=== PATIENT | female | born 1950 | race Caucasian/White ===

== ENCOUNTER → 2016-09-13 | Outpatient (CLI) | payer MEDICARE | END | disposition home or self-care (01) | LOC: CVU 11:34 | PROVIDERS: ATTEND Internal Medicine Cardiovascular Disease | DX: I65.23 Occlusion and stenosis of bilateral carotid arteries (principal) | CPT/HCPCS: 93880 ==

== ENCOUNTER → 2016-09-21 | Outpatient (CLI) | payer MEDICARE ==
[2016-09-21 13:15] LABS: ASPARTATE AMINO TRANSFERASE 122 U/L (15-37); BLOOD UREA NITROGEN 6 mg/dL (7-18)
== END | disposition home or self-care (01) ==
LOC: LAB 08:30
PROVIDERS: ATTEND Internal Medicine Cardiovascular Disease
DX: E78.5 Hyperlipidemia, unspecified (principal); E78.00 Pure hypercholesterolemia, unspecified; R19.5 Other fecal abnormalities; R94.5 Abnormal results of liver function studies; F10.20 Alcohol dependence, uncomplicated; D75.1 Secondary polycythemia; I10 Essential (primary) hypertension; R73.02 Impaired glucose tolerance (oral); I73.9 Peripheral vascular disease, unspecified; I25.10 Atherosclerotic heart disease of native coronary artery without angina pectoris; D69.6 Thrombocytopenia, unspecified; Z68.25 Body mass index [BMI] 25.0-25.9, adult; F17.210 Nicotine dependence, cigarettes, uncomplicated; Z78.0 Asymptomatic menopausal state
CPT/HCPCS: 36415; 80053; 80061; 82103; 82306; 82728; 82784; 83516; 84443; 85025; 85610; 86038

== ENCOUNTER → 2017-02-14 | Outpatient (CLI) | payer MEDICARE ==
[2017-02-14 12:41] LABS: BLOOD UREA NITROGEN 7 mg/dL (7-18); HEMATOCRIT 49.9 % (34.6-47.8); HEMOGLOBIN 16.9 g/dL (11.7-16.4); WHITE BLOOD COUNT 4.2 x10^3/uL (3.4-10)
[2017-02-14 12:46] LABS: ASPARTATE AMINO TRANSFERASE 325 U/L (15-37)
== END | disposition home or self-care (01) ==
LOC: CFH 09:18
PROVIDERS: ATTEND Internal Medicine
DX: E78.5 Hyperlipidemia, unspecified (principal); D69.6 Thrombocytopenia, unspecified; D75.1 Secondary polycythemia; E78.00 Pure hypercholesterolemia, unspecified; F10.24 Alcohol dependence with alcohol-induced mood disorder; R79.89 Other specified abnormal findings of blood chemistry
CPT/HCPCS: 36415; 80053; 80061; 82306; 83036; 85025

== ENCOUNTER → 2017-08-24 | Outpatient (CLI) | payer MEDICARE | END | disposition home or self-care (01) | LOC: CVU 06:59 | PROVIDERS: ATTEND Internal Medicine Cardiovascular Disease | DX: I65.23 Occlusion and stenosis of bilateral carotid arteries (principal); I08.1 Rheumatic disorders of both mitral and tricuspid valves; I10 Essential (primary) hypertension; E78.5 Hyperlipidemia, unspecified | CPT/HCPCS: 93306; 93880 ==

== ENCOUNTER → 2017-09-20 | Outpatient (CLI) | payer MEDICARE ==
[2017-09-20 12:55] LABS: CHLORIDE 103 mmol/L (98-107)
[2017-09-20 13:09] LABS: MEAN CORPUSCULAR HEMOGLOBIN 37.7 pg (27.0-34.8); MEAN CORPUSCULAR HGB CONC 34.4 g/dL (32.4-35.8); MEAN CORPUSCULAR VOLUME 109.6 fL (80-100); MEAN PLATELET VOLUME 10.7 fL (7.4-10.4); PLATELET COUNT 86 x10^3/uL (130-400); RED BLOOD COUNT 4.22 x10^6/uL (3.82-5.3); RED CELL DISTRIBUTION WIDTH 14.7 % (9.6-15.2)
[2017-09-20 13:10] LABS: MD YES
[2017-09-20 13:14] LABS: BASOS#(MANUAL) 0.12 x10^3/uL (0-0.1); BASOS% (MANUAL) 3 % (0-1); EOS#(MANUAL) 0.08 x10^3/uL (0.0-0.4); EOS% (MANUAL) 2 % (1-7); LYMPHS% (MANUAL) 22 % (22-44); MONOS#(MANUAL) 0.33 x10^3/uL (0.3-2.7); MONOS% (MANUAL) 8 % (2-9); REACTIVE LYMPHS # (MANUAL) 0.41 x10^3/uL (0-0); REACTIVE LYMPHS % (MANUAL) 10 % (0-0); SEG#(MANUAL) 2.26 x10^3/uL (1.8-6.8); SEGS% (MANUAL) 55 % (42-75)
[2017-09-20 13:15] LABS: <PLATELET ESTIMATE> DECREASED; ANISOCYTOSIS 1+; GIANT PLATELETS 1+; LARGE PLATELETS 1+
[2017-09-20 13:22] LABS: ALANINE AMINOTRANSFERASE 247 U/L (12-78); ALBUMIN 3.5 g/dL (3.4-5.0); ALKALINE PHOSPHATASE 106 U/L (45-117); ANION GAP 8 mmol/L (5-15); BILIRUBIN,TOTAL 0.5 mg/dL (0.2-1.0); CALCIUM 8.2 mg/dL (8.5-10.1); CHOL/HDL RATIO 4.3; CHOLESTEROL, TOTAL 119 mg/dL (140-239); CREATININE 0.56 mg/dL (0.55-1.02); FOLATE LEVEL 9.8 ng/mL (3.1-17.5); HDL CHOL % 24 % (28-40); HDL CHOLESTEROL (DIRECT) 28 mg/dL (40-60); LDL CHOLESTEROL,CALCULATED 75 mg/dL (54-169); LDL/HDL RATIO 2.7 (0.5-3.0); TOTAL PROTEIN 7.5 g/dL (6.4-8.2); TRIGLYCERIDES 82 mg/dL (50-200); VLDL CHOLESTEROL 16 mg/dL (0-25)
== END | disposition home or self-care (01) ==
LOC: CFH 08:07
PROVIDERS: ATTEND Internal Medicine Cardiovascular Disease
DX: I10 Essential (primary) hypertension (principal); E78.00 Pure hypercholesterolemia, unspecified; D69.6 Thrombocytopenia, unspecified; D75.1 Secondary polycythemia; E55.9 Vitamin D deficiency, unspecified
CPT/HCPCS: 36415; 80053; 80061; 82607; 82746; 83615; 85025

== ENCOUNTER 2018-03-23 08:41 | Emergency (ER) | payer MEDICARE ==
[~2018-03-23] VITALS: Ht 165.1 cm; Wt 66.0 kg
[2018-03-23 08:49] VITALS: BP 169/78
[2018-03-23] MEDS ORDERED: ACETAMINOPHEN 500 MG TABLET PO ONE (11:00)
[2018-03-23] MEDS ORDERED: KETOROLAC 30 MG/1 ML IM ONE (11:00)
== END 2018-03-23 11:27 | disposition left against medical advice (07) ==
LOC: ED 11:21
DX: M79.605 Pain in left leg (principal); M79.604 Pain in right leg; Z53.21 Procedure and treatment not carried out due to patient leaving prior to being seen by health care provider

== ENCOUNTER → 2018-06-29 | Outpatient (CLI) | payer MEDICARE ==
[2018-06-29 12:57] LABS: C-REACTIVE PROTEIN, QUANT 0.07 mg/dL (0.02-0.49)
[2018-06-29 14:31] LABS: MEAN CORPUSCULAR HEMOGLOBIN 35.7 pg (27.0-34.8); MEAN CORPUSCULAR HGB CONC 33.9 g/dL (32.4-35.8); MEAN CORPUSCULAR VOLUME 105.4 fL (80-100)
[2018-06-29 14:32] LABS: MEAN PLATELET VOLUME 9.7 fL (7.4-10.4); PLATELET COUNT 75 x10^3/uL (130-400)
[2018-06-29 14:41] LABS: MD MORPH REVIEW ONLY
[2018-06-29 14:42] LABS: BASOPHILS # (AUTO) 0.02 x10^3/uL (0-0.1); BASOPHILS % (AUTO) 1 % (0-1); EOSINOPHILS # (AUTO) 0.02 x10^3/uL (0-0.4); EOSINOPHILS % (AUTO) 1 % (1-7); LYMPHOCYTES # (AUTO) 1.26 x10^3/uL (1-3.4); LYMPHOCYTES % (AUTO) 36 % (22-44); MONOCYTES # (AUTO) 0.32 x10^3/uL (0.2-0.8); MONOCYTES % (AUTO) 9 % (2-9); NEUTROPHILS % (AUTO) 54 % (42-75)
[2018-06-29 14:43] LABS: <PLATELET ESTIMATE> DECREASED; ANISOCYTOSIS 1+; GIANT PLATELETS 1+
[2018-07-03 16:20] LABS: ANA TITER 1:40
[2018-07-03 16:21] LABS: ANA SCREEN POSITIVE (Negative); ANTI-NUCLEAR ANTIBODY PATTERN NUCLEOLAR
== END | disposition home or self-care (01) ==
LOC: CFH 08:46
PROVIDERS: ATTEND Psychiatry & Neurology Neurology
DX: Z11.3 Encounter for screening for infections with a predominantly sexual mode of transmission (principal); R51 Headache; G60.3 Idiopathic progressive neuropathy
CPT/HCPCS: 36415; 82784; 84155; 84156; 84165; 84550; 85025; 85651; 86038; 86039; 86140; 86334; 86430; 86431; 86592